=== PATIENT | male | born 1975 | race Caucasian/White ===

== ENCOUNTER 2020-06-08 16:41 | Emergency (ER) | payer MEDICAID ==
[~2020-06-08] VITALS: Ht 172.7 cm; Wt 95.7 kg
[2020-06-08 16:47] VITALS: BP 137/94
--- NOTE | 2020-06-08 17:25 | NUR ---
SEEN AND EXAMINED BY JOSÉ SAN
[2020-06-08] MEDS ORDERED: LIDOCAINE 1% INJ 50 ML MDV IJ ONE (17:28)
[2020-06-08] MEDS ORDERED: LIDOCAINE 2% 20 ML MDV TP ONE (17:30)
[2020-06-08] MEDS ORDERED: LIDOCAINE 2% 20 ML MDV ONE (17:31)
--- NOTE | 2020-06-08 17:55 | NUR ---
SUTURING DONE BY JOSÉ BOYLE.
--- NOTE | 2020-06-08 18:03 | NUR ---
Patient discharged to home in stable condition. Written and verbal after care instructions given. Patient verbalizes understanding of instruction.
== END 2020-06-08 18:03 | disposition home or self-care (01) ==
LOC: ER 16:45
DX: S61.412A Laceration without foreign body of left hand, initial encounter (principal); I10 Essential (primary) hypertension; W26.0XXA Contact with knife, initial encounter; Y93.89 Activity, other specified; Y92.89 Other specified places as the place of occurrence of the external cause; Y99.8 Other external cause status
CPT/HCPCS: 12001; 99282; A6403; J3490

== ENCOUNTER 2023-04-05 20:04 | Emergency (ER) | payer MEDICAID ==
[~2023-04-05] VITALS: Ht 175.3 cm; Wt 90.3 kg
[2023-04-05 20:14] VITALS: BP 145/92
[2023-04-05] MEDS ORDERED: KETO10DR3 EACHEYE (21:05)
[2023-04-05] MEDS ORDERED: NAPR-1009 PO (21:05)
--- NOTE | 2023-04-05 21:14 | NUR ---
Patient discharged to home in stable condition. Written and verbal after care instructions given. Patient verbalizes understanding of instruction.
== END 2023-04-05 21:14 | disposition home or self-care (01) ==
LOC: ER 20:07
DX: B30.9 Viral conjunctivitis, unspecified (principal); I10 Essential (primary) hypertension; E78.00 Pure hypercholesterolemia, unspecified; Z79.899 Other long term (current) drug therapy